=== PATIENT | female | born 1995 | race Caucasian/White ===

== ENCOUNTER 2019-03-03 22:47 | Observation (INO) ==
[2019-03-04] MEDS ORDERED: 0.9 % Sodium Chloride 1,000 ML IVC ONE ×2 (00:09→01:24)
[2019-03-04] MEDS ORDERED: Pantoprazole 40 MG VIAL IVP ONE (00:10)
[2019-03-04] MEDS ORDERED: Scopolamine Patch 1.5 MG PATCH.TD72 TD ONE (00:10)
[2019-03-04 00:43] LABS: Bacteria,Urine None Seen per hpf (None-Few); Bilirubin,Urine Small (Negative); Blood,Urine Negative (Negative); Clarity,Urine Cloudy (Clear); Color,Urine Yellow (Yellow); Glucose,Urine (UA) Normal (Normal); Hyaline Casts,Urine None Seen per lpf (None-Few); Ketones,Urine >=160 mg/dL (Negative); Leukocyte Esterase,Urine Negative (Negative); Nitrite,Urine Negative (Negative); PH,Urine 8.5 pH Units (5.0-8.0); Protein,Urine 30 mg/dL (Neg-Trace); RBC,Urine 0-3 per hpf (0-3); Specific Gravity,Urine 1.015 (1.010-1.025); Squamous Epithelial Cell,Urine Many per lpf (None-Few); Urobilinogen,Urine Normal (Normal)
[2019-03-04 00:56] LABS: Amorphous Sediment,Urine Moderate per hpf (Few)
[2019-03-04 01:02] LABS: Albumin 4.7 g/dL (3.5-5.7); Albumin/Globulin Ratio 1.8 (1.1-2.2); Bilirubin,Direct 0.2 mg/dL (0.0-0.2); Bilirubin,Indirect 0.5 mg/dL (0.0-1.0); Bilirubin,Total 0.7 mg/dL (0.3-1.0); Globulin 2.6 g/dL (2.4-3.5); Total Protein 7.3 g/dL (6.4-8.9)
[2019-03-04 01:03] LABS: BUN/Creatinine Ratio 20 (6-26); Blood Urea Nitrogen 13 mg/dL (6-20); Calcium 9.1 mg/dL (8.6-10.3); Carbon Dioxide 26 mEq/L (23-29); Chloride 91 mEq/L (98-107); Glucose 117 mg/dL (70-105); Osmolality,Calculated 273 (280-300); Potassium 2.6 mEq/L (3.5-5.1); Sodium 131 mEq/L (136-145); eGFR For African Americans > 60 (> 60); eGFR For Non-African Americans > 60 (> 60)
[2019-03-04 01:11] LABS: Basophils % 0.2 %; Hematocrit 41.3 % (35.3-44.9); Hemoglobin 14.6 g/dL (11.5-15.4); Immature Granulocytes % 0.6 % (0-4); Lymphocytes # 1.5 K/mcL (0.6-4.6); Lymphocytes % 11.3 %; Mean Corpuscular HGB Conc 35.4 g/dL (31.6-35.5); Mean Corpuscular Hemoglobin 28.2 pg (28.0-33.3); Mean Corpuscular Volume 79.7 fL (83.0-100.0); Mean Platelet Volume 10.2 fL (9.4-12.4); Monocytes # 0.8 K/mcL (0.0-1.3); Monocytes % 6.2 %; Neutrophils # 10.7 K/mcL (1.6-8.9); Platelet Count 308 K/mcL (140-400); Red Blood Count 5.18 M/mcL (3.82-4.97); Red Cell Distribution Width 11.9 % (11.5-14.5); Segmented Neutrophils % 81.7 %; White Blood Count 13.1 K/mcL (4.3-11.1)
[2019-03-04 01:23] LABS: Amphetamine Screen,Urine Negative ng/mL (Cutoff=1000); Barbiturate Screen,Urine Negative ng/mL (Cutoff=200); Benzodiazepines Screen,Urine Negative ng/mL (Cutoff=200); Cannabinoid Screen,Urine Positive ng/mL (Cutoff = 50); Cocaine Screen,Urine Negative ng/mL (Cutoff= 300); Opiate Screen,Urine Negative ng/mL (Cutoff=300); Phencyclidine Screen,Urine Negative ng/mL (Cutoff=25)
[2019-03-04] MEDS ORDERED: Potassium Chloride Elixir 20 MEQ/15 ML UDC PO ONE (01:24)
[2019-03-04] MEDS ORDERED: Promethazine 25 MG in 0.9 % Sodium Chloride 50 ML IVPB ONE (01:45)
[2019-03-04] MEDS ORDERED: Famotidine 20 MG/2 ML VIAL IVP ONE (01:45)
[2019-03-04] MEDS ORDERED: Potassium Chloride 40 MEQ, Lidocaine 1% 2 ML in 0.9 % Sodium Chloride 500 ML IVPB ONE (02:16)
[2019-03-04] MEDS ORDERED: *HR* Nalbuphine 10 MG/ML AMPUL IV ONE (04:23)
[2019-03-04] MEDS ORDERED: *HR* Promethazine 25 MG/ML VIAL IVP PRN (07:20)
[2019-03-04] MEDS ORDERED: Naloxone 0.4 MG/ML INJ IVP PRN (07:20)
[2019-03-04] MEDS ORDERED: Ketorolac 30 MG/ML VIAL IVP PRN (07:20)
[2019-03-04] MEDS ORDERED: Ketorolac 15 MG/ML VIAL IVP PRN (07:20)
[2019-03-04] MEDS ORDERED: Pantoprazole 40 MG VIAL IVP SCH (18:00)
[2019-03-04] MEDS: 0.9 % Sodium Chloride w KCl 40 MEQ/1,000 ML MLS IVC SCH (22:43)
[2019-03-05] MEDS: 0.9 % Sodium Chloride w KCl 40 MEQ/1,000 ML MLS IVC SCH ×2 (03:53→08:14)
[2019-03-05 06:23] VITALS: BP 93/68
[2019-03-05 08:17] LABS: Estimated Average Glucose 100 mg/dl
[2019-03-05 08:20] LABS: Basophils % 0.3 %; Eosinophils # 0.1 K/mcL (0.0-0.6); Eosinophils % 0.4 %; Hemoglobin 12.4 g/dL (11.5-15.4); Immature Granulocytes % 0.5 % (0-4); Lymphocytes # 2.9 K/mcL (0.6-4.6); Mean Corpuscular HGB Conc 34.4 g/dL (31.6-35.5); Mean Corpuscular Volume 84.3 fL (83.0-100.0); Mean Platelet Volume 10.1 fL (9.4-12.4); Monocytes # 1.2 K/mcL (0.0-1.3); Monocytes % 10.4 %; Neutrophils # 7.4 K/mcL (1.6-8.9); Platelet Count 236 K/mcL (140-400); Red Blood Count 4.27 M/mcL (3.82-4.97); Red Cell Distribution Width 12.3 % (11.5-14.5); Segmented Neutrophils % 63.4 %; White Blood Count 11.8 K/mcL (4.3-11.1)
[2019-03-05 08:41] LABS: BUN/Creatinine Ratio 10 (6-26); Blood Urea Nitrogen 6 mg/dL (6-20); Calcium 8.6 mg/dL (8.6-10.3); Carbon Dioxide 24 mEq/L (23-29); Chloride 102 mEq/L (98-107); Glucose 94 mg/dL (70-105); Magnesium 1.9 mg/dL (1.6-2.6); Osmolality,Calculated 273 (280-300); Potassium 3.7 mEq/L (3.5-5.1); Sodium 133 mEq/L (136-145); eGFR For African Americans > 60 (> 60); eGFR For Non-African Americans > 60 (> 60)
[2019-03-05] MEDS ORDERED: Pantoprazole 40 MG VIAL IVP SCH (10:00)
== END 2019-03-05 11:54 | disposition home or self-care (01) ==
LOC: EMEROOARM 22:47 → 3NENU 22:47 → SUATTDRO 03-04 03:52 → 3NENU 03-04 05:14
PROVIDERS: ADMIT Student in an Organized Health Care Education/Training Program; ATTEND Internal Medicine

== ENCOUNTER 2019-08-26 13:52 | Observation (INO) ==
[2019-08-26] MEDS ORDERED: GI Cocktail 40 ML EACH PO ONE (14:28)
[2019-08-26] MEDS ORDERED: Famotidine 20 MG/2 ML VIAL IVP ONE (14:28)
[2019-08-26] MEDS ORDERED: Ondansetron 4 MG/2 ML VIAL IVP PRN ×2 (14:28→23:47)
[2019-08-26] MEDS ORDERED: 0.9 % Sodium Chloride 1,000 ML IVC ONE ×2 (14:28→15:56)
[2019-08-26 14:50] LABS: Bacteria,Urine Few per hpf (None-Few); Bilirubin,Urine Negative (Negative); Blood,Urine Trace (Negative); Clarity,Urine Turbid (Clear); Color,Urine Yellow (Yellow); Glucose,Urine (UA) Normal (Normal); Ketones,Urine >150 mg/dL (Negative); Leukocyte Esterase,Urine Small (Negative); Mucus,Urine Few per lpf (None-Few); Nitrite,Urine Negative (Negative); Protein,Urine 100 mg/dL (Neg-Trace); Specific Gravity,Urine > 1.030 (1.010-1.025); Squamous Epithelial Cell,Urine Moderate per hpf (None-Few)
[2019-08-26 15:23] LABS: Basophils % 0.2 %; Hemoglobin 15.4 g/dL (11.5-15.4); Immature Granulocytes % 0.6 % (0-4); Lymphocytes # 1.3 K/mcL (0.6-4.6); Lymphocytes % 11.8 %; Mean Corpuscular HGB Conc 34.2 g/dL (31.6-35.5); Mean Corpuscular Volume 81.8 fL (83.0-100.0); Mean Platelet Volume 10.1 fL (9.4-12.4); Monocytes % 9.1 %; Neutrophils # 8.9 K/mcL (1.6-8.9); Platelet Count 370 K/mcL (140-400); Red Cell Distribution Width 12.4 % (11.5-14.5); Segmented Neutrophils % 78.3 %; White Blood Count 11.4 K/mcL (4.3-11.1)
[2019-08-26 15:26] LABS: Alanine Aminotransferase 13 Units/L (7-52); Albumin 5.5 g/dL (3.5-5.7); Albumin/Globulin Ratio 1.8 (1.1-2.2); Alkaline Phosphatase 50 Units/L (34-104); Amylase 32 Units/L (29-103); Aspartate Amino Transferase 16 Units/L (13-39); BUN/Creatinine Ratio 21 (6-26); Bilirubin,Direct 0.2 mg/dL (0.0-0.2); Bilirubin,Indirect 0.7 mg/dL (0.0-1.0); Bilirubin,Total 0.9 mg/dL (0.3-1.0); Blood Urea Nitrogen 14 mg/dL (6-20); Calcium 10.5 mg/dL (8.6-10.3); Carbon Dioxide 31 mEq/L (23-29); Chloride 85 mEq/L (98-107); Glucose 97 mg/dL (70-105); Lipase 7 Units/L (11-82); Osmolality,Calculated 270 (280-300); Sodium 130 mEq/L (136-145); Total Protein 8.5 g/dL (6.4-8.9); eGFR For African Americans > 60 (> 60); eGFR For Non-African Americans > 60 (> 60)
[2019-08-26] MEDS ORDERED: Potassium Chloride Elixir 20 MEQ/15 ML UDC PO ONE (15:43)
[2019-08-26] MEDS ORDERED: Pantoprazole 40 MG VIAL IVP ONE (15:55)
[2019-08-26] MEDS ORDERED: Haloperidol Lactate 5 MG/ML VIAL IVP ONE (15:55)
[2019-08-26] MEDS ORDERED: Isovue-370 500 ML BOTTLE IVP ONE (15:57)
[2019-08-26 16:27] LABS: Amphetamine Screen,Urine Negative ng/mL (Cutoff=1000); Barbiturate Screen,Urine Negative ng/mL (Cutoff=200); Benzodiazepines Screen,Urine Negative ng/mL (Cutoff=200); Cannabinoid Screen,Urine Positive ng/mL (Cutoff = 50); Cocaine Screen,Urine Negative ng/mL (Cutoff= 300); Opiate Screen,Urine Positive ng/mL (Cutoff=300); Phencyclidine Screen,Urine Negative ng/mL (Cutoff=25)
[2019-08-26] MEDS ORDERED: *HR* Promethazine 25 MG/ML VIAL IVP ONE (17:16)
[2019-08-26] MEDS ORDERED: Ketorolac 15 MG/ML VIAL IVP ONE (17:16)
[2019-08-26] MEDS ORDERED: 0.9 % Sodium Chloride 1,000 ML IVC SCH (23:45)
[2019-08-26] MEDS ORDERED: Naloxone 0.4 MG/ML INJ IVP PRN (23:47)
[2019-08-27 02:07] LABS: Hematocrit 37.4 % (35.3-44.9); Mean Corpuscular HGB Conc 33.2 g/dL (31.6-35.5); Mean Corpuscular Hemoglobin 27.7 pg (28.0-33.3); Mean Corpuscular Volume 83.5 fL (83.0-100.0); Mean Platelet Volume 10.3 fL (9.4-12.4); Platelet Count 302 K/mcL (140-400); Red Blood Count 4.48 M/mcL (3.82-4.97); Red Cell Distribution Width 12.8 % (11.5-14.5)
[2019-08-27 02:08] LABS: Hemoglobin 12.4 g/dL (11.5-15.4)
[2019-08-27 02:30] LABS: BUN/Creatinine Ratio 19 (6-26); Blood Urea Nitrogen 11 mg/dL (6-20); Calcium 8.5 mg/dL (8.6-10.3); Carbon Dioxide 26 mEq/L (23-29); Chloride 98 mEq/L (98-107); Glucose 104 mg/dL (70-105); Magnesium 2.4 mg/dL (1.6-2.6); Osmolality,Calculated 276 (280-300); Phosphorous 2.6 mg/dL (2.7-4.5); Potassium 3.1 mEq/L (3.5-5.1); Sodium 133 mEq/L (136-145); eGFR For African Americans > 60 (> 60); eGFR For Non-African Americans > 60 (> 60)
[2019-08-27] MEDS ORDERED: Potassium Chloride 40 MEQ, Lidocaine 1% 2 ML in 0.9 % Sodium Chloride 500 ML IVPB ONE (02:45)
[2019-08-27] MEDS ORDERED: Ringers Solution, Lactated 500 ML IVC ONE (09:58)
[2019-08-27] MEDS: *HR* Promethazine 25 MG/ML VIAL IVP PRN (10:28)
[2019-08-27] MEDS: D5% in Lactated Ringers 1,000 ML IVC SCH (11:53)
[2019-08-27 14:46] LABS: BUN/Creatinine Ratio 12 (6-26); Blood Urea Nitrogen 6 mg/dL (6-20); Carbon Dioxide 24 mEq/L (23-29); Chloride 97 mEq/L (98-107); Glucose 99 mg/dL (70-105); Osmolality,Calculated 268 (280-300); Sodium 130 mEq/L (136-145); eGFR For African Americans > 60 (> 60); eGFR For Non-African Americans > 60 (> 60)
[2019-08-27] MEDS ORDERED: Acetaminophen 325 MG TABLET PO PRN (18:09)
[2019-08-27] MEDS: Ketorolac 15 MG/ML VIAL IVP PRN (19:42)
[2019-08-28] MEDS: D5% in Lactated Ringers 1,000 ML IVC SCH ×2 (00:52→12:51)
[2019-08-28 05:59] LABS: BUN/Creatinine Ratio 13 (6-26); Blood Urea Nitrogen 7 mg/dL (6-20); Carbon Dioxide 28 mEq/L (23-29); Chloride 100 mEq/L (98-107); Glucose 122 mg/dL (70-105); Osmolality,Calculated 275 (280-300); Sodium 133 mEq/L (136-145); eGFR For African Americans > 60 (> 60); eGFR For Non-African Americans > 60 (> 60)
[2019-08-28] MEDS ORDERED: Potassium Chloride 40 MEQ, Lidocaine 1% 2 ML in 0.9 % Sodium Chloride 500 ML IVPB ONE (07:03)
[2019-08-28 07:12] VITALS: BP 111/72
[2019-08-28] MEDS ORDERED: Potassium Chloride Elixir 20 MEQ/15 ML UDC PO SCH (09:00)
[2019-08-28] MEDS: *HR* Promethazine 25 MG/ML VIAL IVP PRN (09:08)
[2019-08-28] MEDS: Ketorolac 15 MG/ML VIAL IVP PRN (10:13)
[2019-08-28] MEDS ORDERED: Scopolamine Patch 1.5 MG PATCH.TD72 TD ONE (12:22)
== END 2019-08-28 16:33 | disposition home or self-care (01) ==
LOC: 3ANU 13:52 → EMEROOARM 13:52 → SUATTDRO 18:30 → 3ANU 18:45
PROVIDERS: ADMIT Internal Medicine; ATTEND Internal Medicine